=== PATIENT | male | born 1980 | race Two or more races ===

== ENCOUNTER 2017-12-17 12:02 | Emergency (ER) | payer OTHER ==
[2017-12-17] MEDS ORDERED: SILVER NITRATE APPLICATOR 1 APPL TP ONE (12:57)
[2017-12-17] MEDS ORDERED: CEPHALEXIN 500 MG CAP PO ONE (12:58)
[2017-12-17] MEDS ORDERED: OXYCODONE/APAP 5/325 TAB PO ONE (12:58)
[2017-12-17] MEDS ORDERED: TDAP ADULT 0.5 ML INJ (BOOSTRIX) IM ONE ×2 (13:01→13:02)
--- NOTE | 2017-12-17 13:03 | EDPHY ---
H & P Stated Complaint: R middle finger lac Time Seen by Provider: 12/17/17 12:34 HPI/ROS: HPI: This is a 37-year-old male who presents with Chief Complaint: Right middle finger laceration Location: Right middle finger tip Quality: Amputation Duration: Prior to arrival Signs and Symptoms: + bleeding, no radiation, no numbness, no weakness, no tingling, no decreased range of motion, no swelling, + pain, no fever Timing: Acute Severity: Moderate Context: Patient is right-hand dominant, presents with his employer, with complaints of accidentally injuring the tip of his right middle finger. Patient reports that he was helping to move a ceramic bath tub when his finger tip on his right middle finger was crushed between the bath tub and dry wall. Patient reports that his finger tip fell off and he started to bleed. Patient reports that he has moderate, constant pain that worsens with touching the area. Denies decreased range of motion/paresthesias/weakness. Tetanus status unknown. Modifying Factors: Direct pressure Comment: ROS: see HPI Constitutional: No fever, no chills, no weight loss Eyes: No blurred vision Respiratory: No shortness of breath, no cough Cardiovascular: No chest pain Gastrointestinal: No nausea, no vomiting no diarrhea Genitourinary: No dysuria Extremities: No myalgias Neurologic: No weakness, no numbness Skin: No rashes Hematologic: No bruising, no bleeding MEDICAL/SURGICAL/SOCIAL HISTORY: Medical history: Generally healthy. Does not take any regular medications. Surgical history: Denies Social history: Employed. Nonsmoker CONSTITUTIONAL: Somewhat anxious male, awake and alert, no obvious distress EXTREMITIES: 2/2 pulses, strength 5/5, right 3rd digit distal aspect shows superficial complete amputation of the skin sparing the nail, tendon, bone. DIP/ PIP/MCP flexion/extension intact with good light touch sensation. no deformities , no clubbing, no cyanosis or edema. NEUROLOGICAL: no focal neuro deficits. GCS 15. Light touch sensation intact. SKIN: Warm and dry, no erythema. no rash. Good capillary refill. Source: Patient, [employer] Exam Limitations: Language barrier (Libyan) - Personal History Current Tetanus/Diphtheria Vaccine: Yes Current Tetanus Diphtheria and Acellular Pertussis (TDAP): Yes - Medical/Surgical History Hx Asthma: No Hx Chronic Respiratory Disease: No Hx Diabetes: No Hx Cardiac Disease: No Hx Renal Disease: No Hx Cirrhosis: No Hx Alcoholism: No Hx HIV/AIDS: No Hx Splenectomy or Spleen Trauma: No Other PMH: denies - Social History Smoking Status: Never smoked Constitutional: Initial Vital Signs Temperature (C) 37.1 C 12/17/17 12:10 Heart Rate 71 12/17/17 12:10 Respiratory Rate 16 12/17/17 12:10 Blood Pressure 111/74 12/17/17 12:10 O2 Sat (%) 94 12/17/17 12:10 O2 Delivery Mode Room Air Allergies/Adverse Reactions: No Known Allergies Allergy (Unverified 12/17/17 12:10) Home Medications: Medication Instructions Recorded Cephalexin [Keflex (*)] 500 mg PO QID #28 cap 12/17/17 oxyCODONE/APAP 5/325 [Percocet 1 - 2 tab PO Q4H PRN #10 tab 12/17/17 5/325 (*)] Medical Decision Making - Diagnostics Imaging Results: Imaging Impressions Finger X-Ray 12/17/17 12:22 Impression: Soft tissue defect distal tuft right third finger with small chip fracture. Procedures: Procedure: Wound care. Verbal consent was obtained from the patient. The right middle phalanx distal portion was anesthetized in the usual fashion using a digital block consisting of 6 mL 1% lidocaine without epinephrine. The wound was irrigated, draped and explored to its base with a gloved finger. There were no deep structures involved. No tendon injury was identified. Hemostasis was achieved using silver nitrate sticks x2. Xeroform and bulky dressing applied. The procedure was performed by myself. ED Course/Re-evaluation: Tetanus booster given. Silver nitrate used to obtain hemostasis. Given Keflex and Percocet. X-ray ordered and shows soft tissue injury with possibility of chip fracture. ED decision to consult Hand surgery. Spoke with Dr. Gilliam who agrees with Keflex, hemostasis, moist dressing. Patient is to call his office this afternoon obtain an appointment time to be seen tomorrow for scheduled graft. No signs of neurovascular compromise/tenting of skin/compartment syndrome/ extremities and joints examined above and below area of concern and are neurovascularly intact/open fracture. This patient was seen under the supervision of my secondary supervising physician. I evaluated care for this patient independently. Discussed this patient with Dr. Meraz who did not see the patient. Differential Diagnosis: Differential diagnosis includes but is not limited to nail injury, tendon injury , nerve injury, phalanx fracture. - Data Points Medications Given: Discontinued Medications Cephalexin HCl (Keflex) 500 mg PO EDNOW ONE PRN Reason: Protocol Stop: 12/17/17 12:59 Last Admin: 12/17/17 13:03 Dose: 500 mg Diphtheria/Tetanus/Acell Pertussis (Boostrix) 0.5 ml IM .ONCE ONE Stop: 12/17/17 13:02 Last Admin: 12/17/17 13:04 Dose: 0.5 ml Oxycodone/Acetaminophen (Percocet 5/325) 1 tab PO EDNOW ONE Stop: 12/17/17 12:59 Last Admin: 12/17/17 13:03 Dose: 1 tab Departure - Departure Disposition: Home, Routine, Self-Care Clinical Impression: Traumatic amputation of tip of finger of right hand Condition: Good Instructions: Finger Amputation (ED) Additional Instructions: Keep the dressing dry and in place until seen by Hand surgery. Take Tylenol 650 mg every 4 hours and/or Ibuprofen 600 mg every 8 hours with food as needed for pain. Use Percocet every 6 hours as needed for severe/break through pain. Do not use Tylenol and Percocet concomitantly. Apply ice for 30 minutes at a time; 2-3 times per day for the next 1-2 days. Take Keflex 500 mg 4 times a day x7 days. Follow up with Hand surgery. Your to call the office this afternoon and get an appointment time to be seen tomorrow. You will most likely need surgery to graft and reconstruct the finger tip. Mantenga el vendaje seco y en tapia lugar hasta que sea revisado por un cirujano de mano. Robinette Tylenol 650mg cada 4 horas y/o ibuprofeno 600mg cada 8 horas con comida cuando lo necesite para el dolor. Use Percocet cada 6 horas cuando lo necesite por dolor nii de disrupcin. No use Tylenol y Percocet a la misma vez. Aplique hielo por 30 minutos a la vez; 2-3 veces por da por los prximos 1-2 d as. Robinette Keflex 500mg 4 veces al da pos los prximos 7 jacinto. Albina jossie rosalino de seguimiento con un cirujano de mano. Debe llamar la oficina esta tarde y hacer jossie rosalino para ser revisado maana. Es lo ms probable que necesite ciruga para injertar y reconstruir la punta del dedo. Referrals: Brett Khan MD [Primary Care Provider] - As per Instructions Chad Gilliam MD [Medical Doctor] - As per Instructions Prescriptions: Cephalexin [Keflex (*)] 500 mg PO QID #28 cap oxyCODONE/APAP 5/325 [Percocet 5/325 (*)] 1 - 2 tab PO Q4H PRN #10 tab PRN Reason: Pain, Severe Print Language: Libyan
[2017-12-17 13:35] VITALS: BP 128/70
== END 2017-12-17 13:59 | disposition home or self-care (01) ==
PROC: 3E0T3BZ Introduction of Anesthetic Agent into Peripheral Nerves and Plexi, Percutaneous Approach (ICD-10-PCS; principal; 2017-12-17)
DX: S68.622A Partial traumatic transphalangeal amputation of right middle finger, initial encounter (principal); Z23 Encounter for immunization; W23.1XXA Caught, crushed, jammed, or pinched between stationary objects, initial encounter; Y99.8 Other external cause status; Y93.89 Activity, other specified